=== PATIENT | male | born 1975 | race Caucasian/White ===

== ENCOUNTER 2016-11-20 20:34 | Emergency (ER) | payer BC ==
[2016-11-20 20:50] VITALS: BP 144/77
[2016-11-20] MEDS ORDERED: HYDROcodone/ACETAMIN 5-325 MG* 1 TAB PO ONE (21:04)
[2016-11-20] MEDS ORDERED: Amoxicillin/Clavulanate TAB* 875 MG PO ONE (21:04)
--- NOTE | 2016-11-20 21:13 | UC ---
Dental HPI - HPI Summary HPI Summary: R upper jaw pain, difficulty opening mouth, and marked swelling starting 3 days ago. Has been feeling poor and sleeping a lot in that time. Actual teeth don't hurt. - History of Current Complaint Chief Complaint: UCDentalProblem Stated Complaint: JAW STIFFNESS,SWELLING Time Seen by Provider: 11/20/16 20:46 Hx Obtained From: Patient Onset/Duration: Gradual Onset, Lasting Days Severity: Moderate Aggravating: Chewing - Allergies/Home Medications Allergies/Adverse Reactions: Allergies Allergy/AdvReac Type Severity Reaction Status Date / Time No Known Allergies Allergy Verified 11/20/16 20:41 PMH/Surg Hx/FS Hx/Imm Hx Previously Healthy: Yes - Surgical History Surgical History: None - Family History Known Family History: Negative: Blood Disorder - Social History Occupation: Employed Full-time Alcohol Use: Occasionally Substance Use Type: Marijuana Substance Use Comment - Amount & Last Used: occasionally Smoking Status (MU): Former Smoker - Immunization History Most Recent Influenza Vaccination: none Most Recent Tetanus Shot: > 10 yrs Review of Systems Constitutional: Negative Skin: Negative Eyes: Negative ENT: Dental Pain Respiratory: Negative Cardiovascular: Negative Gastrointestinal: Negative Genitourinary: Negative Motor: Negative Neurovascular: Negative Musculoskeletal: Negative Neurological: Negative Psychological: Negative All Other Systems Reviewed And Are Negative: Yes Physical Exam Triage Information Reviewed: Yes Appearance: Well-Appearing, Pain Distress - mild Vital Signs: Initial Vital Signs Temp 99.6 F 11/20/16 20:43 Pulse 98 11/20/16 20:43 Resp 16 11/20/16 20:43 BP 144/77 11/20/16 20:43 Pulse Ox 97 11/20/16 20:43 Vital Signs Reviewed: Yes Eye Exam: Normal Eyes: Positive: Conjunctiva Clear ENT: Positive: Pharynx normal, TMs normal, Other: - R facial swelling. Negative : Nasal congestion, Nasal drainage Dental Exam: Other - tender at margin of R upper gums/buccal mucosa near 1st/ 2nd molars Dental: Positive: Abscess @. Negative: Gross Decay/Caries @ Neck exam: Normal Neck: Positive: Supple, Nontender, No Lymphadenopathy Respiratory Exam: Normal Respiratory: Positive: Chest non-tender, Lungs clear, Normal breath sounds, No respiratory distress, No accessory muscle use Cardiovascular Exam: Normal Cardiovascular: Positive: RRR, No Murmur Musculoskeletal Exam: Normal Neurological Exam: Normal Neurological: Positive: Alert Psychological Exam: Normal Skin Exam: Normal Dental Complaint Course/Dx - Differential Dx/Diagnosis Provider Diagnoses: R upper dental abscess Discharge - Discharge Plan Condition: Stable Disposition: HOME Prescriptions: Amoxicillin/Clavulanate TAB* [Augmentin TAB 875*] 875 mg PO BID #14 tab Patient Education Materials: Dental Abscess (ED) Additional Instructions: As we discussed, your pain and swelling could also be from an infection in the tissue in your mouth or cheek. Please see your dentist this week to look for possible tooth problems. I recommend you take 600mg ibuprofen (3 [id number] pills) 3 times per day for pain.
== END 2016-11-20 21:19 | disposition home or self-care (01) ==
LOC: UCEAST 20:34
DX: K04.7 Periapical abscess without sinus (principal); F12.90 Cannabis use, unspecified, uncomplicated; Z87.891 Personal history of nicotine dependence
CPT/HCPCS: 99202; A9270-GY; G0463